=== PATIENT | female | born 1970 | race Caucasian/White ===

== ENCOUNTER 2019-01-05 19:42 | Emergency (ER) | payer OTHER, SELFPAY ==
--- NOTE | ~2019-01-05 | XR_ITS ---
EXAMINATION: XR chest 2V DATE: 01/05/2019 20:31 INDICATION: Mid chest pain, shortness of breath, flushed and diaphoretic. TECHNIQUE: PA and lateral views of the chest were obtained. COMPARISON: None FINDINGS: The lungs are clear with no focal airspace opacities, pulmonary edema, pleural effusion or pneumothor ax. The cardiomediastinal silhouette is normal. Visualized bones and soft tissues are unremarkable. IMPRESSION: 1. No acute cardiopulmonary disease. Reviewed, dictated and finalized at location A. [facility]
[2019-01-05 19:52] VITALS: BP 154/97; PULSE 76; RESP 20; TEMP 36.9; O2SAT 100
--- NOTE | 2019-01-05 19:52 | ED.CHESTPAIN ---
HPI - Chest Pain General Chief Complaint: Chest Pain Stated Complaint: shortness of breath Time Seen by Provider: 01/05/19 19:52 Source: patient and RN notes reviewed Mode of arrival: ambulatory Limitations: no limitations History of Present Illness HPI narrative: 48-year-old female was driving in the car as a passenger. She had sudden onset of chest pressure went up into her neck she felt flushed. She also had shortness of breath associated with this. He began to resolve but then returned. She claimed 11/16. Is resolving on her arrival here. Started within 10 minutes of her arrival. She denied any nausea vomiting diaphoresis. She states she did have a stress test done 1-2 years ago. At that time it was for fatigue not for chest pain. Her father did of cancer but did have a heart attack before age 50. complaint: chest pain Onset (ago): minute(s) (10) Timing of current episode: constant Prior episodes: No Onset: during rest Pain location: substernal Pain radiation: jaw/teeth Pain scale (0-10): 10 Quality: heaviness Relieving factors: nothing Exacerbating factors: nothing Associated symptoms: dyspnea Treatment prior to arrival: none Risk Factors Coronary artery disease risk factors: hypertension and family history of CAD before age 50 Thoracic aortic dissection risk factors: none Related Data On Oral Contraceptives: No Home Medications Medication Instructions Recorded Confirmed Unable to Obtain Home Medications 01/05/19 01/05/19 Allergies Allergy/AdvReac Type Severity Reaction Status Date / Time No Known Allergies Allergy Verified 01/05/19 19:57 Review of Systems Constitutional: Constitutional: Reports no additional constitutional complaints ENT: Reports system reviewed and no additional complaints, except as documented Cardiovascular: Cardiovascular: Denies diaphoresis, Denies rapid heart rate, Denies lightheadedness and Denies palpitations Gastrointestinal: Gastrointestinal: Denies nausea and Denies vomiting Musculoskeletal: Musculoskeletal: Reports no additional musculoskeletal complaints Neurologic: Reports system reviewed and no additional complaints, except as documented Endocrine: Endocrine: Denies excessive sweating Hematologic/Lymphatic: Hematologic/Lymphatic: Reports no additional hematologic/lymphatic complaints PMFSH Surgical History Surgical History (Updated 01/05/19 @ 20:13 by Naresh Madrid MD) H/O tubal ligation (Acute) Hx of cholecystectomy (Acute) Family History Family History (Updated 01/05/19 @ 20:14 by Naresh Madrid MD) Father Heart disease, Onset Age: 50 Social History Social History (Updated 01/05/19 @ 20:14 by Naresh Madrid MD) Smoking status: Never smoker Alcohol intake: never Substance use: never Exam Const: General: healthy appearing, no acute distress and alert Nutritional Appearance: well nourished Orientation/consciousness: oriented x3 Other: female nurse in room during examination. HENMT: Head: normal to inspection Face and sinus: normal facial exam Mouth: Yes lip normal Eyes: Conjunctivae: conjunctivae normal Pupils: PERRL EOM: EOM intact bilaterally Neck: Neck: normal visual inspection Chest: Chest palpation & inspection: normal inspection of the chest and no tenderness Resp: Effort & Inspection: normal respiratory effort Auscultation: clear to auscultation bilaterally Cardio: Rate: regular rate Rhythm: regular rhythm and regular rhythm Heart sounds: no murmurs GI: Palpation (GI): Yes soft and No tender Auscultation: normal bowel sounds Back/Spine/Pelvis: Back: no CVA tenderness Skin: General skin exam: normal color Rashes: no rashes Neuro: General: oriented x3, moves all extremities and no focal motor deficits Speech: normal speech Gait exam (Neuro): normal gait Extrem: General: normal to inspection and no clubbing, cyanosis or edema Psych: Appearance: grossly normal and well kempt Mental Status
--- NOTE | 2019-01-05 19:53 | ECG_ITS ---
Measurements Intervals [place] Rate: 78 P: 5 MI: 151 QRS: -31 QRSD: 88 T: 32 QT: 401 QTc: 458 Interpretive Statements SINUS RHYTHM LEFT AXIS DEVIATION BASELINE ARTIFACT- I, II, III, AVR, AVL, AVF BORDERLINE ECG Electronically Signed On 01-06-2019 19:39:46 [employer] by Jung Dewitt D.O.
[2019-01-05] MEDS: ASPIRIN 81 MG CHEWABLE TABLET 324 MG PO (20:00)
[2019-01-05 20:05] VITALS: PULSE 74
[2019-01-05 20:14] LABS: Basophils Absolute Auto 0.04 K/mm3 (0.00-0.10); Basophils Percent Auto 0.6 % (0.0-1.0); Eosinophils Absolute Auto 0.19 K/mm3 (0.02-0.50); Eosinophils Percent Auto 2.9 % (1.0-6.0); Hematocrit 37.4 % (35.0-49.0); Hemoglobin 12.8 g/dL (12.0-15.0); Immature Granulocyte Absolute 0.02 K/mm3 (0.00-0.00); Immature Granulocyte Percent A 0.3 % (0.0-0.0); Lymphocytes Absolute Auto 1.82 K/mm3 (1.10-4.50); Lymphocytes Percent Auto 27.9 % (18.0-42.0); Mean Corpuscular HGB Conc 34.2 g/dL (32.0-36.0); Mean Corpuscular Hemoglobin 31.6 pg (27.0-31.0); Mean Corpuscular Volume 92.3 fL (78.0-102.0); Mean Platelet Volume 9.8 fl (9.2-11.8); Monocytes Absolute Auto 0.49 K/mm3 (0.10-0.90); Monocytes Percent Auto 7.5 % (2.0-11.0); Neutrophils Percent Auto 60.8 % (50.0-70.0); Platelet Count Result 224 K/mm3 (150-420); Red Blood Count 4.05 M/mm3 (4.20-5.40); Red Cell Distribution Width 11.7 % (11.6-14.4); White Blood Count 6.5 K/mm3 (4.8-10.8)
[2019-01-05 20:35] LABS: Alanine Aminotransferase 26 U/L (14-59); Albumin Level 3.9 g/dL (3.4-5.0); Alkaline Phosphatase 76 U/L (46-116); Amylase 65 U/L (25-115); Anion Gap 11.9 mmol/L (7-16); Aspartate Amino Transferase 19 U/L (15-37); Bilirubin,Total 0.3 mg/dL (0.00-1.00); Blood Urea Nitrogen 12 mg/dL (7-18); Calcium 8.6 mg/dL (8.5-10.1); Carbon Dioxide 28 mmol/L (21-32); Chloride 104 mmol/L (98-108); Estimated CRCL calculation 78 ml/min; Estimated Glomerular Filt Rate > 60; Glucose 98 mg/dL (70-99); Lipase 290 U/L (73-393); Osmolality Calculated 289 mOsm/kg (285-295); Potassium 3.9 mmol/L (3.5-5.1); Sodium 140 mmol/L (136-145); Total Protein 7.2 g/dL (6.4-8.2)
[2019-01-05 20:37] LABS: INR 1.1; Prothrombin Time 11.5 Seconds (9.64-11.0); Troponin I < 0.02 ng/mL (0.00-0.056)
[2019-01-05 21:05] VITALS: BP 140/88; PULSE 63; RESP 18; O2SAT 100
[2019-01-05 22:06] VITALS: BP 124/91; PULSE 64; RESP 16; O2SAT 98
[2019-01-05 22:31] LABS: Troponin I < 0.02 ng/mL (0.00-0.056)
[2019-01-05 22:36] VITALS: BP 122/86; PULSE 68; RESP 16; O2SAT 100
== END 2019-01-05 22:40 | disposition home or self-care (01) ==
PROVIDERS: Emergency Provider Emergency Medicine
DX: R07.89 Other chest pain (principal)
CPT/HCPCS: 36415; 71046; 80053; 82150; 83690; 84484; 85025; 85380; 85610; 93005; 99284; A9270